=== PATIENT | male | born 1950 | race Caucasian/White ===

== ENCOUNTER 2024-07-04 08:18 | Day surgery (SDC) | payer OTHER ==
[~2024-07-04] VITALS: Ht 167.6 cm; Wt 75.0 kg
[2024-07-04] VITALS (9 sets, daily range): BP systolic 103–149; BP diastolic 60–85
[~2024-07-04 08:18] MED LIST: ALBU.083IS IH; ALBU90OI INH; ASPI325 PO; ASPI81CH PO; ASPI81EC PO; ATOR10 PO; ATOR80 PO; ATORVASTATIN CA40 MG PO; Aciphex20 MG; BENTYL10 MG PO; Bactrim Ds Tab1 EACH PO; CARB100ER PO; CARV3.125 PO; CARV6.25 PO; CEPH500 PO; CLOP75 PO; Colace100 MG PO; Coreg12.5 MG PO; Crestor5 MG; DEXILANT30 MG PO; ENOX40I SQ; ESCI20 PO; EUTHYROX125 MCG PO; EZET10 PO; FAMO40 PO; FLUT44OIA INH; HEARTBURN RELI150 M1 PO; HYDACE10B PO; HYDACE5 PO; HYDACE5325 PO; Isosorbide Mono30 MG PO; LEVSOD125 PO; LEVSOD137 PO; LIDO700A20 TOP; LISI5 PO; LOSA25 PO; LOSA50 PO; METO25ER PO; METR70GEL; NAPR500 PO; NITR.4SL SL; Nexium40 MG PO; Norco 5-325 Ta1 EACH PO; OMEP40CA12 PO; PANT40 PO; PRALUENT P75 MG/1 ML SC; PRAV20 PO; PRAZ1 PO; Percocet 7.5-31 EACH PO; RABEPRAZOLE SOD20 MG PO; RANI150 PO; ROSU10TA PO; ROSU5 PO; SIMV10 PO; STOOL SOFTENER100 MG PO; SUCR1 PO; TAMS.4ER PO; TIZA4 PO; TRAZ50 PO; ZALE5 PO; ZOLP10 PO; Zofran Odt4 MG SL
[2024-07-04] MEDS ORDERED: Heparin Sodium 1000 Units/ML 10ML MDV ONE (09:42)
[2024-07-04] MEDS ORDERED: Verapamil HCL 2.5 MG/ML 2ML Injection ONE (09:42)
[2024-07-04] MEDS ORDERED: NS 250 ML IV ONE (09:42)
[2024-07-04] MEDS ORDERED: NS 1,000 ML IV ONE ×2 (09:42→09:49)
[2024-07-04] MEDS ORDERED: Nitroglycerin 2 MG/20 ML BTL ONE (09:43)
[2024-07-04] MEDS ORDERED: Midazolam HCl 1MG / ML 2ML Vial ONE (09:49)
[2024-07-04] MEDS ORDERED: FentaNYL Citrate 50 MCG/ML 2 ML Injection ONE (09:49)
--- NOTE | 2024-07-04 11:37 | NUR ---
ASSUMED CARE OF PT POST PROCEDURE. PT ALERT AND ORIENTED, PLEASENT AND COOPERATIVE; DENIES CHEST PAIN POST PROCEDURE. MONITOR SB 50'S, B/P 145/60, SPO2 100% RA. R RADIAL SITE NO SWELLING/HEMATOMA, TR BAND IN PLACE; RUE POSITIVE PLEUTH POST TR BAND PLACEMENT.
--- NOTE | 2024-07-04 12:55 | NUR ---
TR BAND FULLY DEFLATED, R RADIAL SITE WITHOUT S/S OF SWELLING/HEMATOMA.
--- NOTE | 2024-07-04 13:35 | NUR ---
PT DRESSED SELF WITHOUT ISSUE, SITE UNCHANGED. TR BAND REMOVED, CLOTH DOT AND WRIST IMMOBILIZER PLACED; IV REMOVED-CANNULA INTACT.
--- NOTE | 2024-07-04 13:45 | NUR ---
PT RECEIVED DISCHARGE INSTRUCTIONS, MED LIST AND AFTER CARE INSTRUCTIONS; VERBALIZED GOOD UNDERSTANDING. PT LEFT FACILITY VIA W/C, CONDITION STABLE.
== END 2024-07-04 15:32 | disposition home or self-care (01) ==
LOC: MHTC 08:18
DX: I25.119 Atherosclerotic heart disease of native coronary artery with unspecified angina pectoris (principal); T82.855A Stenosis of coronary artery stent, initial encounter; I25.2 Old myocardial infarction; E78.01 Familial hypercholesterolemia; G47.33 Obstructive sleep apnea (adult) (pediatric); I10 Essential (primary) hypertension; J44.9 Chronic obstructive pulmonary disease, unspecified; K21.9 Gastro-esophageal reflux disease without esophagitis; F43.10 Post-traumatic stress disorder, unspecified; E03.9 Hypothyroidism, unspecified; Z87.891 Personal history of nicotine dependence; Z95.5 Presence of coronary angioplasty implant and graft; Z79.02 Long term (current) use of antithrombotics/antiplatelets; Z79.899 Other long term (current) drug therapy; Z88.8 Allergy status to other drugs, medicaments and biological substances
CPT/HCPCS: 76937; 93454; 99152; C1769; C1887; C1894; J1644; J2250; J3010; J7030; J7050; Q9967